=== PATIENT | female | born 1965 | race Caucasian/White ===

== ENCOUNTER 2023-08-28 05:44 | Emergency (ER) | payer SELFPAY ==
[~2023-08-28] VITALS: Ht 162.6 cm; Wt 72.7 kg
[~2023-08-28 05:44] MED LIST: ADDERALL5 MG PO; TIZANIDINE2 MG PO
[2023-08-28 05:48] VITALS: TEMP 98
[2023-08-28] MEDS ORDERED: LORazepam 2 MG/ML 1 ML VIAL IV ONE ×2 (06:00→06:45)
[2023-08-28] MEDS ORDERED: Ketorolac 15 MG/ML VIAL IV ONE (06:00)
[2023-08-28 06:15] LABS: BASO # 0.1 K/mm3 (0.0-0.2); BASO % 0.6 % (0.0-2.0); EOS # 0.1 K/mm3 (0.0-0.7); EOS % 1.6 % (0.0-4.0); GRAN # 5.1 K/mm3 (1.4-6.5); HEMOGLOBIN 14.6 g/dl (12.5-16.0); LYMPH # 2.2 K/mm3 (1.2-3.4); LYMPH % 27.5 % (20.0-51.0); MEAN CELL VOLUME 83 fl (80.0-100.0); MEAN CORPUSCULAR HEMOGLOBIN 28 pg (27-31); MEAN CORPUSCULAR HGB CONC 33 g/dl (33.0-37.0); MEAN PLATELET VOLUME 10.4 fl (7.4-10.4); MONO # 0.6 K/mm3 (0.1-0.6); MONO % 6.9 % (1.7-9.3); PLATELET COUNT 240 K/mm3 (130-400); RED BLOOD COUNT 5.28 M/mm3 (4.10-5.30)
[2023-08-28 06:25] LABS: INR 0.9 (0.8-3.0); PROTHROMBIN TIME 10.2 SECONDS (9.7-12.8)
[2023-08-28 06:28] LABS: PARTIAL THROMBOPLASTIN TIME 30.5 SECONDS (26.0-37.0)
[2023-08-28 06:33] LABS: ALBUMIN 4.7 g/dL (3.5-5.0); BILIRUBIN,TOTAL 0.5 mg/dL (0.2-1.2); CALCIUM 8.8 mg/dL (8.4-10.2); CREATININE, serum 0.79 mg/dL (0.57-1.11); POTASSIUM 3.4 mEq/L (3.5-4.5)
[2023-08-28 06:39] LABS: TROPONIN-I 0.012 ng/mL (0.00-0.033)
[2023-08-28 09:27] VITALS: BP 152/96; PULSE 89
[2023-08-28] MEDS ORDERED: NORCO 325 MG-51 TAB PO (09:30)
== END 2023-08-28 09:45 ==
LOC: COL.ER 05:44
PROVIDERS: Emergency Medicine
DX: R07.9 Chest pain, unspecified (principal); F17.290 Nicotine dependence, other tobacco product, uncomplicated
CPT/HCPCS: J1885; J2060